=== PATIENT | male | born 1960 | race Caucasian/White ===

== ENCOUNTER 2023-09-10 15:50 | Outpatient (OUT) | payer OTHER, SELFPAY ==
--- NOTE | 2023-09-10 16:06 | XR_ITS ---
[address] [address] Patient Name: JULIO SINGH MRN: [id number] date: 1960 Sex: M Assigned Patient Location: [facility] Current Patient Location: Accession/Order Number: [id number] Exam Date: 09/10/2023 16:00 Report Date: 09/11/2023 08:10 At the request of: VIKAS RUST Procedure: XR chest 2V EXAMINATION: XR chest 2V HISTORY: Influenza A J10.1 COMPARISON: No relevant comparison available. TECHNIQUE: PA and lateral FINDINGS: LUNGS: Diffuse bilateral patchy parenchymal infiltrates VASCULATURE: No increased pulmonary vasculature. PLEURA: No pneumothorax. Suspected small right pleural effusion versus pleural thickening/fat. Slightly elevated right hemidiaphragm CARDIAC: No cardiomegaly or cardiac silhouette abnormality. MEDIASTINUM: No visible mass or adenopathy. BONES: No fracture or visible bone lesion. Upper thoracic levocurvature OTHER: Negative. XR/XR chest 2V IMPRESSION: Increased interstitial lung markings. Acute and/or chronic changes Electronically authenticated by: AMANDA BINGHAM Date: 09/11/2023 08:10
== END 2023-09-10 15:51 | disposition home or self-care (01) ==
PROVIDERS: PCP Family Medicine; Visit Provider Family Medicine
DX: J10.1 Influenza due to other identified influenza virus with other respiratory manifestations (principal)
CPT/HCPCS: 71046

== ENCOUNTER 2024-03-23 07:28 | Outpatient (OUT) | payer OTHER, SELFPAY ==
--- NOTE | 2024-03-23 07:31 | US_ITS ---
[facility] [place] [id number] Patient Name: JULIO SINGH MRN: [id number] date: 1960 Sex: M Assigned Patient Location: [place] Current Patient Location: [place] Accession/Order Number: [id number] Exam Date: 03/23/2024 07:32 Report Date: 03/23/2024 09:12 At the request of: VIKAS RUST Procedure: US right upper quadrant EXAM: US right upper quadrant HISTORY: Elevated Liver Enzymes COMPARISON: None. TECHNIQUE: Grayscale and color ultrasound FINDINGS: The liver is enlarged in size diffusely echogenic measuring 20 cm in length. No focal hepatic mass. Identified at the gallbladder fossa is an area of hypoechogenicity possibly focal fatty sparing measuring 3 cm. Hepatopedal flow in the main portal vein The gallbladder is normal in size. The wall measures 1 mm. Negative sonographic Sim sign. The common bile duct measures 6.1 mm. Negative sonographic Sim sign. Visualized pancreas is normal The right kidney is normal measuring 13.5 x 5.5 x 5.8 cm US/US right upper quadrant IMPRESSION: Echogenic liver suggesting hepatic steatosis Electronically authenticated by: AMANDA BINGHAM Date: 03/23/2024 09:12
[2024-03-23 10:45] LABS: Estimated Average Glucose 252 mg/dL; Glycohemoglobin A1C 10.4 % (4.5-6.2)
== END 2024-03-23 07:29 | disposition home or self-care (01) ==
LOC: US 07:28
PROVIDERS: PCP Family Medicine; Visit Provider Family Medicine
DX: R94.5 Abnormal results of liver function studies (principal); R73.9 Hyperglycemia, unspecified
CPT/HCPCS: 36415; 76705; 83036